=== PATIENT | female | born 1935 | race Caucasian/White ===

== ENCOUNTER 2018-08-29 08:50 | Inpatient (IN) | payer MEDICARE, OTHER ==
[~2018-08-29] VITALS: Ht 165.1 cm; Wt 81.2 kg
[~2018-08-29 08:50] MED LIST: ALBU3IS INH; ALBU90OI INH; ANAS1 PO; ANORO ELLIPTA1 EACH INH; ASPI81CH PO; Acetaminophen325 M1 PO; Ambien10 MG PO; COLCRYS0.6 MG PO; Crestor20 MG PO; DIAZ5 PO; FURO40 PO; ISODIN20 PO; Isosorbide Mono30 MG PO; LINZESS145 MCG PO; LISI5 PO; METR500 PO; NITR.6SL SL; POTA10T PO; PRADAXA75 MG PO; Prednisone20 MG PO; RANO500T PO; SACC250C PO; SOTO80 PO; SPIR25 PO; TIOT18 INH
[2018-08-29 09:38] LABS: BASOPHILS ABSOLUTE AUTO 0.02 K/mm3 (0.00-0.23); BASOPHILS PERCENT AUTO 0 % (0-2); EOSINOPHILS ABSOLUTE AUTO 0.05 K/mm3 (0.00-0.68); EOSINOPHILS PERCENT AUTO 1 % (0-6); Hematocrit 42.8 % (33.0-51.0); IMMATURE GRAN ABSOLUTE AUTO 0.01 K/mm3 (0.00-0.10); IMMATURE GRAN PERCENT AUTO 0 % (0-1); LYMPHOCYTES ABSOLUTE AUTO 0.73 K/mm3 (0.84-5.20); LYMPHOCYTES PERCENT AUTO 10 % (21-46); MONOCYTES ABSOLUTE AUTO 0.76 K/mm3 (0.16-1.47); MONOCYTES PERCENT AUTO 10 % (4-13); Mean Corpuscular HGB 27.7 pg (26.0-34.0); Mean Corpuscular HGB Conc 30.4 g/dL (31.5-36.5); Mean Corpuscular Volume 91 fL (80-100); Mean Platelet Volume 10.4 fL (9.1-12.4); NEUTROPHILS ABSOLUTE AUTO 5.73 K/mm3 (1.96-9.15); NEUTROPHILS PERCENT AUTO 79 % (41-73); Platelet Count 187 K/mm3 (150-400); RDW Coefficient Variation 15.8 % (11.7-14.2); RDW Standard Deviation 52.4 fL (35.1-46.3)
[2018-08-29 09:54] LABS: Alanine Aminotransfer (ALT/SGP 27 U/L (12-78); Albumin, Blood 2.3 g/dL (3.4-5.0); Albumin/Globulin Ratio 0.5 (0.8-1.8); Alk Phos 74 U/L (50-136); Anion Gap 6 mmol/L (6-16); Aspartate Aminotrans (AST/SGOT 32 U/L (12-37); Bilirubin, Total 0.6 mg/dL (0.1-1.0); Blood Urea Nitrogen 30 mg/dL (8-24); Bun/Creatinine Ratio 41.9 (12.0-20.0); CO2, Blood 25 mmol/L (21-32); Calcium, Blood 9.4 mg/dL (8.5-10.1); Chloride, Blood 102 mmol/L (98-108); Creatinine, Blood 0.72 mg/dL (0.40-1.00); Globulin, Blood 4.4 g/dL (2.2-4.0); Glomerular Filtration Rate >60 (60-); Glucose, Blood 151 mg/dL (70-99); Potassium, Blood 4.3 mmol/L (3.5-5.5); Sodium, Blood 133 mmol/L (136-145); Total Protein, Blood 6.7 g/dL (6.4-8.2); Troponin I 0.066 ng/mL (0.000-0.040)
[2018-08-29 10:34] LABS: Bicarbonate Venous 29.1 mmol/L (24.0-30.0); PCO2 Venous 45.4 mmHg (38-42); pH Blood Venous 7.43 (7.34-7.37)
[2018-08-29] MEDS ORDERED: ZOLP10 (11:42)
[2018-08-29] MEDS ORDERED: POTCHL10ER PO (11:42)
[2018-08-29] MEDS ORDERED: ANORO ELLIPTA1 EACH INH (13:07)
[2018-08-29 13:27] LABS: Source, Urine Voided
[2018-08-29 13:31] LABS: Appearance, Urine Clear (Clear); Bilirubin, Urine Neg (Neg); Blood, Urine 2+ (Neg); Color, Urine Yellow (P-Yellow); Glucose Qualitative, Urine Neg (Neg); Ketones, Urine Neg (Neg); Leukocyte Esterase, Urine 2+ (Neg); Nitrite, Urine Neg (Neg); Protein, Urine 2+ (Neg); Urobilinogen, Urine NORM (Normal)
[2018-08-29 13:40] LABS: Red Blood Cells, Urine 0-2 /hpf (0-2); Squamous Epithelial Cells Not Seen /hpf (Few)
[2018-08-29 14:02] LABS: Bacteria Not Seen /hpf
[2018-08-30 05:28] LABS: BASOPHILS ABSOLUTE AUTO 0.02 K/mm3 (0.00-0.23); BASOPHILS PERCENT AUTO 0 % (0-2); EOSINOPHILS ABSOLUTE AUTO 0.11 K/mm3 (0.00-0.68); EOSINOPHILS PERCENT AUTO 2 % (0-6); Hematocrit 38.9 % (33.0-51.0); Hemoglobin 12.4 g/dL (11.5-16.0); IMMATURE GRAN ABSOLUTE AUTO 0.02 K/mm3 (0.00-0.10); IMMATURE GRAN PERCENT AUTO 0 % (0-1); LYMPHOCYTES ABSOLUTE AUTO 0.97 K/mm3 (0.84-5.20); LYMPHOCYTES PERCENT AUTO 14 % (21-46); MONOCYTES ABSOLUTE AUTO 0.85 K/mm3 (0.16-1.47); MONOCYTES PERCENT AUTO 12 % (4-13); Mean Corpuscular HGB 27.6 pg (26.0-34.0); Mean Corpuscular HGB Conc 31.9 g/dL (31.5-36.5); Mean Corpuscular Volume 86 fL (80-100); Mean Platelet Volume 10.7 fL (9.1-12.4); NEUTROPHILS PERCENT AUTO 72 % (41-73); Platelet Count 188 K/mm3 (150-400); RDW Coefficient Variation 15.4 % (11.7-14.2); RDW Standard Deviation 48.7 fL (35.1-46.3); White Blood Cell Count 7.07 K/mm3 (4.00-11.30)
[2018-08-30 05:52] LABS: Anion Gap 4 mmol/L (6-16); Blood Urea Nitrogen 25 mg/dL (8-24); Bun/Creatinine Ratio 30.5 (12.0-20.0); CO2, Blood 32 mmol/L (21-32); Calcium, Blood 8.9 mg/dL (8.5-10.1); Chloride, Blood 98 mmol/L (98-108); Creatinine, Blood 0.82 mg/dL (0.40-1.00); Glomerular Filtration Rate >60 (60-); Glucose, Blood 109 mg/dL (70-99); Phosphorus, Blood 3.7 mg/dL (2.5-4.9); Potassium, Blood 3.9 mmol/L (3.5-5.5); Sodium, Blood 134 mmol/L (136-145)
--- NOTE | 2018-08-30 07:33 | NUR ---
SHIFT SUMMARY PT SLEPT T/O SHIFT. PT HAD NO COMPLAINTS. PT CURRENTLY AWAKE AND IN GOOD SPIRITS. CALL LIGHT IN REACH.
--- NOTE | 2018-08-30 10:48 | NUR ---
Echocardiogram completed.
--- NOTE | 2018-08-30 18:37 | NUR ---
SHIFT SUMMARY THE PATIENT PRESENTED THIS SHIFT WITH LUNG SOUNDS THAT WERE WHEEZEY AND DIMINISHED. THE PATIENT'S VITALS WERE WNL AND SHE WAS A&O X4. THE PATIENT WAS TAKEN OFF CONTACT PRECAUTIONS PER INFECTIOUS CONTROL. THE PATIENT HAD A CT SCAN, REVEALING AN ABDORNORNALITY FOR THE PATIENT, THE PATIENT CALLED HER FAMILY AND THEY HAVE BEEN WITH THE PATIENT SINCE. THE PATIENT IS RESTING AT THIS TIME, WILL CONTINUE TO MONITOR.
[2018-08-31 04:42] LABS: BASOPHILS ABSOLUTE AUTO 0.01 K/mm3 (0.00-0.23); BASOPHILS PERCENT AUTO 0 % (0-2); EOSINOPHILS ABSOLUTE AUTO 0.15 K/mm3 (0.00-0.68); EOSINOPHILS PERCENT AUTO 2 % (0-6); Hemoglobin 12.9 g/dL (11.5-16.0); IMMATURE GRAN ABSOLUTE AUTO 0.02 K/mm3 (0.00-0.10); IMMATURE GRAN PERCENT AUTO 0 % (0-1); LYMPHOCYTES ABSOLUTE AUTO 1.05 K/mm3 (0.84-5.20); LYMPHOCYTES PERCENT AUTO 14 % (21-46); MONOCYTES ABSOLUTE AUTO 0.79 K/mm3 (0.16-1.47); MONOCYTES PERCENT AUTO 10 % (4-13); Mean Corpuscular HGB 27.4 pg (26.0-34.0); Mean Corpuscular HGB Conc 32.3 g/dL (31.5-36.5); Mean Corpuscular Volume 85 fL (80-100); Mean Platelet Volume 10.6 fL (9.1-12.4); NEUTROPHILS ABSOLUTE AUTO 5.66 K/mm3 (1.96-9.15); NEUTROPHILS PERCENT AUTO 74 % (41-73); Platelet Count 201 K/mm3 (150-400); RDW Coefficient Variation 15.4 % (11.7-14.2); RDW Standard Deviation 47.6 fL (35.1-46.3); Red Blood Cell Count 4.71 M/mm3 (3.80-5.20); White Blood Cell Count 7.68 K/mm3 (4.00-11.30)
[2018-08-31 05:02] LABS: Albumin, Blood 2.3 g/dL (3.4-5.0); Anion Gap 5 mmol/L (6-16); Blood Urea Nitrogen 28 mg/dL (8-24); Bun/Creatinine Ratio 29.8 (12.0-20.0); CO2, Blood 31 mmol/L (21-32); Calcium, Blood 8.9 mg/dL (8.5-10.1); Chloride, Blood 96 mmol/L (98-108); Creatinine, Blood 0.94 mg/dL (0.40-1.00); Glomerular Filtration Rate >60 (60-); Glucose, Blood 115 mg/dL (70-99); Potassium, Blood 4.1 mmol/L (3.5-5.5); Sodium, Blood 132 mmol/L (136-145)
--- NOTE | 2018-08-31 06:31 | NUR ---
SHIFT SUMMARY PT HAS SLEPT WELL T/O NIGHT. AOX4. VSS. DENIES NAUSEA. REPORTS MILD HEADACHE & WAS MEDICATED W/TYLENOL PER ORDERS. REPORTED SOB LAST NIGHT & RT GAVE BREATHING TX PER ORDERS, NO FURTHER COMPLAINTS OF DYSPNEA. SPO2 >90% ON 2L NC, RESPIRATIONS E/U, LUNGS SOUND COURSE T/O. CALL LIGHT IS IN REACH & I WILL CONTINUE TO MONITOR PT.
--- NOTE | 2018-08-31 16:20 | NUR ---
SHIFT SUMMARY THE PATIENT PRESENTED THIS SHIFT A&O X4, VITALS WNL, AND WITH LUNGS SOUNDS THAT WERE DIMINISHED THROUGHOUT. THE PATIENT IS INDEPENDANT IN HER ROOM. TELE REPORTED THAT THE PATENT H/R WAS 90 BPM, WITH A-FIB. THE PATIENT'S SPOUSE IN IN THE ROOM VISITING AT THIS TIME, WILL CONTINUE TO MONITOR.
--- NOTE | 2018-08-31 16:41 | NUR ---
SHIFT SUMMARY THE PATIENT PREENTED THIS SHIFT WITH WHEEZEY/COARSE LUNG SOUNDS, A&O X4, AND WITH VITALS WNL. THE PATIENT HAD HER GRAY AND TELE REMOVED TODAY FOR PREP TO DISCHARGE HOME, POSSIBLE DISCHARGE TOMORROW, HOME. THE PATIENT'S DAUGHTERS TALKED WITH DR. VEE TODAY ABOUT THE PATIENT GOING HOME. THE PATIENT HAS BEEN UP TO THE RESTROOM SEVERAL TIMES TODAY AND HAS DONE WELL WITH HER WALKER. THE PATIENT IS RESTING AT THIS TIME, WILL CONTINUE TO MONITOR.
--- NOTE | 2018-08-31 22:45 | NUR ---
CALLED DR REGARDING BP OF 80/43 WITH A RECHECK OF 91/55, ORDERS GIVEN FOR NS BOLUS OF 500 ML. WILL ADMINISTER AND MONITOR.
--- NOTE | 2018-08-31 23:10 | NUR ---
2056 PT LYING IN BED, DENIES ANY DICOMFORT AT THIS TIME. BP 80/43 AT 1503, AT 2012 IT WAS 91/55, WILL CALL . O2 87% ON 2L O2 VIA NC, INCREASED TO 3L, WILL RECHECK. NO OTHER APPARENT SIGNS OF DISTRESS. CALL LIGHT IS IN REACH.
--- NOTE | 2018-09-01 02:17 | NUR ---
Notified Dr Tyler of the latest vital signs and crackles in rt base. No bolus at this time, will repeat vital signs in 1/2 hr. Discusses plan with pts nurseMonica.
--- NOTE | 2018-09-01 03:03 | NUR ---
0050 PT LYING IN BED, AWAKE, UNHAPPY ABOUT ALARM ON IV PUMP GOING OFF. EXPLAINED WHAT THE ALARM WAS FOR TO PT. RECHECK ON PT'S BP NOW IS 79/35, HR 64 WITH A RECHECK OF BP 86/43 AND HR 68. WILL CALL DR LERMA THIS. PT DENIES NEED FOR ANYTHING. NO APPARENT SIGNS OF DISTRESS. CALL LIGHT IS IN REACH. 0303 PT LYING IN BED, EYES CLOSED, APPEARS TO BE RESTING. BREATHING IS EVEN, UNLABORED. NO APPARENT SIGNS OF DISTRESS. CALL LIGHT IS IN REACH.
--- NOTE | 2018-09-01 04:33 | NUR ---
PT IS AAO X 4, ON 3L AT 95%. DENIES SOB. DENIED ANY DISCOMFORT FOR THIS SHIFT. BP WAS LOW AT HS AT 91/55 (IT WAS 80/43 AT 1500), CALLED , GAVE 500 ML NS BOLUS. BP AFTER WAS STILL LOW AT 79/35, 86/43. CALLED , ORDER FOR RECHECK AT 0207, IT WAS 88/46. DR ORDERED TO CONTINUE TO MONITOR AND DO ANOTHER RECHECK AT 0323, IT WAS 85/44, 91/42. PT DENIED SYMPTOMS FOR ALL OF THESE LOW BP'S.
--- NOTE | 2018-09-01 04:33 | NUR ---
PT LYING IN BED, AWAKE, LAB IN ROOM. NO APPARENT SIGNS OF DISTRESS. CALL LIGHT IS IN REACH.
[2018-09-01 05:02] LABS: BASOPHILS ABSOLUTE AUTO 0.01 K/mm3 (0.00-0.23); BASOPHILS PERCENT AUTO 0 % (0-2); EOSINOPHILS ABSOLUTE AUTO 0.14 K/mm3 (0.00-0.68); EOSINOPHILS PERCENT AUTO 2 % (0-6); Hematocrit 39.7 % (33.0-51.0); Hemoglobin 12.6 g/dL (11.5-16.0); IMMATURE GRAN ABSOLUTE AUTO 0.02 K/mm3 (0.00-0.10); IMMATURE GRAN PERCENT AUTO 0 % (0-1); LYMPHOCYTES ABSOLUTE AUTO 1.07 K/mm3 (0.84-5.20); LYMPHOCYTES PERCENT AUTO 15 % (21-46); MONOCYTES ABSOLUTE AUTO 0.82 K/mm3 (0.16-1.47); MONOCYTES PERCENT AUTO 12 % (4-13); Mean Corpuscular HGB 27.6 pg (26.0-34.0); Mean Corpuscular HGB Conc 31.7 g/dL (31.5-36.5); Mean Corpuscular Volume 87 fL (80-100); Mean Platelet Volume 11.3 fL (9.1-12.4); NEUTROPHILS ABSOLUTE AUTO 5.01 K/mm3 (1.96-9.15); NEUTROPHILS PERCENT AUTO 71 % (41-73); Platelet Count 174 K/mm3 (150-400); RDW Coefficient Variation 15.3 % (11.7-14.2); RDW Standard Deviation 48.8 fL (35.1-46.3); Red Blood Cell Count 4.57 M/mm3 (3.80-5.20); White Blood Cell Count 7.07 K/mm3 (4.00-11.30)
[2018-09-01 05:11] LABS: Albumin, Blood 2.2 g/dL (3.4-5.0); Anion Gap 7 mmol/L (6-16); Blood Urea Nitrogen 46 mg/dL (8-24); Bun/Creatinine Ratio 26.9 (12.0-20.0); CO2, Blood 30 mmol/L (21-32); Calcium, Blood 8.5 mg/dL (8.5-10.1); Chloride, Blood 94 mmol/L (98-108); Creatinine, Blood 1.71 mg/dL (0.40-1.00); Glomerular Filtration Rate 30 (60-); Glucose, Blood 109 mg/dL (70-99); Phosphorus, Blood 5.4 mg/dL (2.5-4.9); Potassium, Blood 5.4 mmol/L (3.5-5.5); Sodium, Blood 131 mmol/L (136-145)
--- NOTE | 2018-09-01 05:34 | NUR ---
PT LYING IN BED, EYES CLOSED. APPEARS TO BE RESTING. WAKES EASILY TO VERBAL STIMULI. NO APPARENT SIGNS OF DISTRESS. PT DENIES NEED FOR ANYTHING AT THIS TIME. CALL LIGHT IS IN REACH. NO OTHER CHANGES THIS SHIFT.
--- NOTE | 2018-09-01 19:26 | NUR ---
SHIFT SUMMARY PT SLEEPING ON AND OFF THROUGH DAY. DAUGHTER AT BEDSIDE. 1 PERSON ASSIST TO BATHROOM USING FWW. DENIES PAIN OR NAUSEA. DENIES RESP DISTRESS THROUGH DAY EXCEPT THIS MORNING WHEN SHE WENT TO RESTROOM ON ROOM AIR AND SATS DROPPED TO LOW 80'S. O2 REPLACED AND SATS CAME UP QUICKLY AND PT STARTED TO FEEL BETTER. BP HAS IMPROVED THROUGH DAY WITH BP MEDS AND DIURETICS HELD AND MD NOTIFIED.
[2018-09-02 05:15] LABS: BASOPHILS ABSOLUTE AUTO 0.02 K/mm3 (0.00-0.23); BASOPHILS PERCENT AUTO 0 % (0-2); EOSINOPHILS ABSOLUTE AUTO 0.17 K/mm3 (0.00-0.68); EOSINOPHILS PERCENT AUTO 2 % (0-6); Hematocrit 42.2 % (33.0-51.0); Hemoglobin 13.1 g/dL (11.5-16.0); IMMATURE GRAN ABSOLUTE AUTO 0.03 K/mm3 (0.00-0.10); IMMATURE GRAN PERCENT AUTO 0 % (0-1); LYMPHOCYTES ABSOLUTE AUTO 1.11 K/mm3 (0.84-5.20); LYMPHOCYTES PERCENT AUTO 15 % (21-46); MONOCYTES ABSOLUTE AUTO 0.71 K/mm3 (0.16-1.47); MONOCYTES PERCENT AUTO 10 % (4-13); Mean Corpuscular HGB 27.2 pg (26.0-34.0); Mean Corpuscular Volume 88 fL (80-100); Mean Platelet Volume 10.7 fL (9.1-12.4); NEUTROPHILS PERCENT AUTO 72 % (41-73); Platelet Count 222 K/mm3 (150-400); RDW Standard Deviation 48.1 fL (35.1-46.3); Red Blood Cell Count 4.82 M/mm3 (3.80-5.20); White Blood Cell Count 7.34 K/mm3 (4.00-11.30)
[2018-09-02 05:50] LABS: Albumin, Blood 2.4 g/dL (3.4-5.0); Anion Gap 8 mmol/L (6-16); Blood Urea Nitrogen 52 mg/dL (8-24); Bun/Creatinine Ratio 45.2 (12.0-20.0); CO2, Blood 28 mmol/L (21-32); Calcium, Blood 9.2 mg/dL (8.5-10.1); Chloride, Blood 91 mmol/L (98-108); Creatinine, Blood 1.15 mg/dL (0.40-1.00); Glomerular Filtration Rate 48 (60-); Glucose, Blood 109 mg/dL (70-99); Phosphorus, Blood 3.6 mg/dL (2.5-4.9); Potassium, Blood 5.1 mmol/L (3.5-5.5); Sodium, Blood 127 mmol/L (136-145)
--- NOTE | 2018-09-02 07:20 | NUR ---
SHIFT SUMMARY PT A/O. UPSET VALIUM ORDER WAS D/C'D. CALLED [facility] AND HE GAVE OT ORDER OF 5MG VALIUM. SHE WAS ABLE TO SLEEP T/O NIGHT. SBA TO BA. USING 3L O2 NC. CALL LIGHT IN REACH.
--- NOTE | 2018-09-02 15:01 | NUR ---
DISCHARGE PT DISCHARGED TO HOME WITH HOME HEALTH. THIS RN EXPLAINED DISCHARGE INSTRUCTIONS AND MEDICATIONS TO PT'S DAUGHTER AND PT. THEY REPORT THEY UNDERSTAND. MEDICATIONS FAXED TO REQUESTED PHARMACY. IV REMOVED WITHOUT DIFFICULTY. PT TRANSFERRED TO PRIVATE VEHICLE VIA WHEELCHAIR BY [employer]. PT'S BELONGINGS WITH PT'S DAUGHTER.
== END 2018-09-02 14:42 | disposition home health service (06) | DRG 291 ==
LOC: ER 08:50 → MEDS 14:51
PROVIDERS: Emergency Medicine; Family Medicine; ADMIT Internal Medicine Endocrinology, Diabetes & Metabolism
DX: I11.0 Hypertensive heart disease with heart failure (principal); J96.01 Acute respiratory failure with hypoxia; N17.9 Acute kidney failure, unspecified; I50.33 Acute on chronic diastolic (congestive) heart failure; I25.110 Atherosclerotic heart disease of native coronary artery with unstable angina pectoris; J44.9 Chronic obstructive pulmonary disease, unspecified; I27.20 Pulmonary hypertension, unspecified
CPT/HCPCS: 36415; 51702; 71046; 71260; 80048; 80053; 80069; 81001; 82803; 83605; 83735; 83880; 84100; 84484; 85025; 93005; 93010; 93306; 94640; 94760; 96361-59; 96365-59; 96375-59; 99285-25; A9270-GY; J0696; J1940; J2405; J7030; Q9967